=== PATIENT | female | born 1970 | race Caucasian/White ===

== ENCOUNTER 2016-08-02 20:35 | Emergency (ER) | payer OTHER ==
[2016-08-02 21:39] VITALS: PULSE 71; RESP 16; TEMP 98.6
[2016-08-02] MEDS ORDERED: OXYCODONE/APAP 5/325 TAB PO ONE (21:51)
--- NOTE | 2016-08-02 21:55 | EDPHY ---
H & P Time Seen by Provider: 08/02/16 21:39 HPI/ROS: CHIEF COMPLAINT: Left hip and thigh pain HISTORY OF PRESENT ILLNESS: This is a 46-year-old female presenting to the emergency department complaining of left hip and left thigh pain status post falling onto a bench seat at [place] on July 17. Patient states she thought maybe it was just muscle soreness but complaining of pain at the hip joint and right at the head of the femur with range of motion. Increased pain with ambulation, patient states was seen at an urgent care clinic they x-rayed her lumbar spine no fractures no herniated disc. Denies any bowel or bladder incontinence, no numbness or tingling in lower extremities REVIEW OF SYSTEMS: Constitutional: No fever, no chills. Eyes: No discharge. No blurred vision Cardiovascular: No chest pain, no palpitations. Respiratory: No cough, no shortness of breath. Gastrointestinal: No abdominal pain, no vomiting. Genitourinary: No hematuria. No bowel or bladder incontinence Musculoskeletal: No back pain. Left hip left thigh pain Skin: No rashes. Neurological: No headache. Smoking Status: Never smoked Physical Exam: General Appearance: Alert, no distress. Eyes: Pupils equal and round no pallor or injection. ENT, Mouth: Mucous membranes moist. Respiratory: There are no retractions, lungs are clear to auscultation. Cardiovascular: Regular rate and rhythm. Gastrointestinal: Abdomen is soft and nontender, no masses, bowel sounds normal. Neurological: No focal deficits. Ambulatory with antalgic gait Skin: Warm and dry, no rashes. Musculoskeletal: Neck is supple nontender. [id number]-[id number] vertebral spine nontender on palpation Extremities: Symmetrical. Left hip tender on palpation decreased range of motion due to pain no rotation noted no obvious deformity positive CMS intact Psychiatric: Patient is oriented X 3, acting appropriately Constitutional: Initial Vital Signs Temperature (C) 37 C 08/02/16 21:36 Heart Rate 71 08/02/16 21:36 Respiratory Rate 16 08/02/16 21:36 Blood Pressure 129/99 H 08/02/16 21:36 O2 Sat (%) 98 08/02/16 21:36 O2 Delivery Mode Room Air Allergies/Adverse Reactions: No Known Allergies Allergy (Unverified 08/02/16 21:35) Home Medications: Medication Instructions Recorded Citalopram 08/02/16 Lidocaine 5% [Lidoderm 5% Patch 1 ea TD DAILY #3 patch 08/02/16 (*)] oxyCODONE/APAP 5/325 [Percocet 1 - 2 tab PO Q6H PRN #15 tab 08/02/16 5/325 (*)] Medical Decision Making - Diagnostics Imaging Results: Imaging Impressions Femur X-Ray 08/02/16 21:51 Impression: Possible left femoroacetabular impingement. ED Course/Re-evaluation: Discussed the plan of care: X-ray of left hip and femur, pain meds given 2330: Discussed results, patient will be following up with Orthopedics on Monday has an outpatient appointment for MRI scheduled. Discharge home---> stable, ambulatory with antalgic gait, no neuro deficits. Discussed all discharge instructions Differential Diagnosis: Other differential diagnosis considered but not limited to hip dislocation, femur fracture, and femoral head fracture - Data Points Medications Given: Discontinued Medications Miscellaneous Information (Patch Removal) 1 ea TD DAILY21 AMANDA Stop: 01/30/17 20:59 Last Admin: 08/03/16 00:10 Dose: 1 ea Oxycodone/Acetaminophen (Percocet 5/325) 2 tab PO EDNOW ONE Stop: 08/02/16 21:52 Last Admin: 08/02/16 22:11 Dose: 2 tab Departure - Departure Disposition: Home, Routine, Self-Care Clinical Impression: Hip pain, left Condition: Good Instructions: Hip Pain (ED) Additional Instructions: 1. Follow up with Orthopedics on Monday per your scheduled appointment. 2. Prescription for an MRI to rule out impingement left femoral acetabular 3. Ibuprofen 600 mg every 6-8 hours as needed 4. You can also utilize lidocaine patches to that area 12 hours on 12 hours off 4. Decreased prolonged pressure on left lower extremity Referrals: DAMARI TAYLOR [Primary Care Provider] - As per Instructions Prescriptions: Lidocaine 5% [Lidoderm 5% Patch (*)] 1 ea TD DAILY #3 patch oxyCODONE/APAP 5/325 [Percocet 5/325 (*)] 1 - 2 tab PO Q6H PRN #15 tab PRN Reason: Pain, Severe
[2016-08-02] MEDS ORDERED: LIDOCAINE 5% 1 EA PATCH TD ONE (23:51)
[2016-08-02 23:57] VITALS: BP 118/62; O2SAT 96
[2016-08-03] MEDS ORDERED: LIDOCAINE 5% 1 EA PATCH TD SCH (09:00)
[2016-08-03] MEDS ORDERED: PATCH REMOVAL 1 EA PATCH TD SCH (21:00)
== END 2016-08-02 23:57 | disposition home or self-care (01) ==
DX: S79.912A Unspecified injury of left hip, initial encounter (principal); W08.XXXA Fall from other furniture, initial encounter

== ENCOUNTER 2016-12-27 08:00 | Emergency (ER) | payer OTHER ==
--- NOTE | 2016-12-27 08:07 | EDPHY ---
H & P Time Seen by Provider: 12/27/16 08:07 HPI/ROS: CHIEF COMPLAINT: Abdominal pain for 24 hours HISTORY OF PRESENT ILLNESS: Patient presents with intermittent epigastric abdominal pain for the last 24 hours. It comes in waves and currently severity is mild. Does not radiate and was worse when she tried to take some broth orally last night, no other oral intake since then. Normal bowel movement at 5: 00 p.m. last night. Not associated with vomiting or diarrhea. No recent injury or trauma. REVIEW OF SYSTEMS: Eye: no change in vision ENT: no sore throat Cardiac: no chest pain or syncope Pulmonary: no cough or SOB Abdomen: HPI Musculoskeletal: no back pain Skin: no rash Neuro: no headache Constitutional: no fever : no urinary symptoms A comprehensive 10 point review of systems is otherwise negative aside from elements mentioned in the history of present illness. PAST MEDICAL HISTORY: Negative Family history: Brother with gallstones Social history: Physical therapist, occasional alcohol. General Appearance: Alert and conversant, cooperative. Eyes: No scleral icterus. ENT, Mouth: Slightly dry mucous membranes. Respiratory: Normal respiratory effort, breath sounds equal, lungs are clear to auscultation. Cardiovascular: Regular rate and rhythm. Gastrointestinal: Right upper quadrant tenderness and Gonzalez sign. No rebound or guarding and no McBurney's point tenderness. Neurological: Alert and oriented x3. Normally conversant. Face symmetric, normal movement and sensation in all extremities. Skin: Warm and dry, no rashes. Musculoskeletal: No peripheral edema and no joint swelling. Psychiatric: Not agitated. Emergency Department course/MDM: Normal saline 1 L for mild clinical dehydration and decreased oral intake. Patient declined pain medication. Labs to include CBC chemistry test LFT and lipase, gallbladder ultrasound. 925: Results discussed, plan to treat symptomatically with antacids, unlikely to have gallstones or pancreatitis or acute surgical process at this time. 12-lead EKG interpreted by me; official reading is in trace master. My interpretation is sinus rhythm with PVC and left axis, no ischemic changes. 1125: Feels better after GI cocktail, Pepcid, IV Ativan. Abdomen soft and nontender at this time. Smoking Status: Never smoked Constitutional: Initial Vital Signs Temperature (C) 36.5 C 12/27/16 08:03 Heart Rate 54 L 12/27/16 08:03 Respiratory Rate 20 12/27/16 08:03 Blood Pressure 175/106 H 12/27/16 08:03 O2 Sat (%) 98 12/27/16 08:03 O2 Delivery Mode Room Air Allergies/Adverse Reactions: No Known Allergies Allergy (Verified 12/27/16 08:02) Home Medications: Medication Instructions Recorded Citalopram 08/02/16 Medical Decision Making - Diagnostics EKG Interpretation: 12-lead EKG interpreted by me; official reading is in trace master. My interpretation is sinus rhythm rate 62 with PVC and left axis, no ischemic changes. Imaging Results: Imaging Impressions Abdomen Ultrasound 12/27/16 08:16 Impression: No cholelithiasis or biliary ductal dilation. Findings and recommendations discussed with Emergency Department physician, JULIANA HERRING at 9:10 hour, 12/27/2016. Final report concurs with initial preliminary interpretation. Differential Diagnosis: Differential diagnosis considered for abdominal pain including but not limited to GERD, perforated peptic ulcer, appendicitis, cholecystitis, pancreatitis, gastritis and urinary tract infection. - Data Points Laboratory Results: Laboratory Results 12/27/16 08:20 12/27/16 08:20 12/27/16 12/27/16 12/27/16 08:20 08:20 08:20 WBC 7.45 10^3/uL 10^3/uL (3.80-9.50) RBC 4.76 10^6/uL 10^6/uL (4.18-5.33) Hgb 13.3 g/dL g/dL (12.6-16.3) Hct 38.5 % % (38.0-47.0) MCV 80.9 fL L fL (81.5-99.8) MCH 27.9 pg pg (27.9-34.1) MCHC 34.5 g/dL g/dL (32.4-36.7) RDW 12.5 % % (11.5-15.2) Plt Count 292 10^3/uL 10^3/uL (150-400) MPV 8.9 fL fL (8.7-11.7) Neut % (Auto) 67.8 % % (39.3-74.2) Lymph % (Auto) 24.0 % % (15.0-45.0) Wallace % (Auto) 5.9 % % (4.5-13.0) Eos % (Auto) 1.5 % % (0.6-7.6) Baso % (Auto) 0.5 % % (0.3-1.7) Nucleat RBC Rel Count 0.0 % % (0.0-0.2) Absolute Neuts (auto) 5.05 10^3/uL 10^3/uL (1.70-6.50) Absolute Lymphs (auto) 1.79 10^3/uL 10^3/uL (1.00-3.00) Absolute Monos (auto) 0.44 10^3/uL 10^3/uL (0.30-0.80) Absolute Eos (auto) 0.11 10^3/uL 10^3/uL (0.03-0.40) Absolute Basos (auto) 0.04 10^3/uL 10^3/uL (0.02-0.10) Absolute Nucleated RBC 0.00 10^3/uL 10^3/uL (0-0.01) Immature Gran % 0.3 % % (0.0-1.1) Immature Gran # 0.02 10^3/uL 10^3/uL (0.00-0.10) Sodium 137 mEq/L mEq/L (134-144) Potassium 3.5 mEq/L mEq/L (3.5-5.2) Chloride 103 mEq/L mEq/L (97-110) Carbon Dioxide 24 mEq/l mEq/l (22-31) Anion Gap 10 mEq/L mEq/L (8-16) BUN 7 mg/dL mg/dL (7-23) Creatinine 0.8 mg/dL mg/dL (0.6-1.0) Estimated GFR > 60 Glucose 97 mg/dL mg/dL (70-100) Calcium 9.2 mg/dL mg/dL (8.5-10.4) Total Bilirubin 0.9 mg/dL mg/dL (0.1-1.4) Conjugated Bilirubin 0.1 mg/dL mg/dL (0.0-0.5) Unconjugated Bilirubin 0.8 mg/dL mg/dL (0.0-1.1) AST 29 IU/L IU/L (14-46) ALT 31 IU/L IU/L (9-52) Alkaline Phosphatase 69 IU/L IU/L (38-126) Total Protein 7.7 g/dL g/dL (6.3-8.2) Albumin 4.2 g/dL g/dL (3.5-5.0) Lipase 147 IU/L IU/L (23-300) Beta HCG, Qual NEGATIVE Medications Given: Discontinued Medications Al Hydroxide/Mg Hydroxide (Maalox Susp) 30 ml PO ONCE ONE Stop: 12/27/16 10:13 Last Admin: 12/27/16 10:16 Dose: 30 ml Hyoscyamine Sulfate (Levsin, Hyomax-Sl) 0.25 mg PO ONCE ONE Stop: 12/27/16 10:13 Last Admin: 12/27/16 10:16 Dose: 0.25 mg Sodium Chloride (Ns) 1,000 mls @ 0 mls/hr IV EDNOW ONE; Wide Open PRN Reason: Protocol Stop: 12/27/16 08:17 Last Admin: 12/27/16 08:55 Dose: 1,000 mls Famotidine/Sodium Chloride (Pepcid 20 Mg (Premix)) 50 mls @ 200 mls/hr IV EDNOW ONE Stop: 12/27/16 10:57 Last Admin: 12/27/16 10:50 Dose: 50 mls Lidocaine (Lidocaine 2% Viscous) 15 ml PO ONCE ONE Stop: 12/27/16 10:13 Last Admin: 12/27/16 10:16 Dose: 15 ml Lorazepam (Ativan Injection) 1 mg IVP EDNOW ONE Stop: 12/27/16 10:44 Last Admin: 12/27/16 10:49 Dose: 1 mg Departure - Departure Disposition: Home, Routine, Self-Care Clinical Impression: Abdominal pain Qualifiers: Abdominal location: epigastric Qualified Code(s): R10.13 - Epigastric pain Condition: Good Instructions: Acute Abdominal Pain (ED) Additional Instructions: Try [id number] antacids such as Prilosec or Pepcid, decrease caffeine intake. Return if you get worsening pain, fever, vomiting, new symptoms. Referrals: Baljete Henry MD [Primary Care Provider] - As per Instructions
[2016-12-27] MEDS ORDERED: NS 1,000 ML IV ONE (08:16)
[2016-12-27 08:28] LABS: PLATELET COUNT 292 10^3/uL (150-400)
--- NOTE | 2016-12-27 09:29 | CPEKG ---
Heart Rate: 62 RR Interval: 968 P-R Interval: 156 QRSD Interval: 92 QT Interval: 472 QTC Interval: 480 P [place]: 7 QRS [place]: -34 T Wave [place]: 23 EKG Severity - BORDERLINE ECG - EKG Impression: SINUS ARRHYTHMIA, RATE 57-68 EKG Impression: VENTRICULAR PREMATURE COMPLEX EKG Impression: LEFT AXIS DEVIATION Electronically Signed By: Davonte Hilliard 27-Dec-2016 09:40:46
[2016-12-27] MEDS ORDERED: HYOSCYAMINE SULFATE 0.125 MG TAB PO ONE (10:12)
[2016-12-27] MEDS ORDERED: MAG HYDROX/AL HYDROX/SIMETH 30 ML UDCUP PO ONE (10:12)
[2016-12-27] MEDS ORDERED: LIDOCAINE 2% VISCOUS 15 ML UDCUP PO ONE (10:12)
[2016-12-27] MEDS ORDERED: LORazepam 2 MG/ML INJ IVP ONE (10:43)
[2016-12-27] MEDS ORDERED: FAMOTIDINE 20 MG/NACL 50 ML IV ONE (10:43)
[2016-12-27 11:48] VITALS: BP 132/77; PULSE 59; RESP 18; TEMP 98.1; O2SAT 97
== END 2016-12-27 11:48 | disposition home or self-care (01) ==
DX: R10.13 Epigastric pain (principal); E86.9 Volume depletion, unspecified
CPT/HCPCS: 96374; J2060